=== PATIENT | male | born 1985 | race Caucasian/White ===

== ENCOUNTER 2020-06-16 23:33 | Emergency (ER) | payer SELFPAY ==
[~2020-06-16] VITALS: Ht 182.9 cm; Wt 79.4 kg
[2020-06-17] MEDS ORDERED: PERIDEX15 ML MM (01:02)
[2020-06-17] MEDS ORDERED: AMOX500 PO (01:02)
== END 2020-06-17 01:18 | disposition home or self-care (01) ==
LOC: ER 23:33
DX: K02.9 Dental caries, unspecified (principal); F17.210 Nicotine dependence, cigarettes, uncomplicated
CPT/HCPCS: 99282

== ENCOUNTER 2020-07-26 23:05 | Emergency (ER) | payer OTHER ==
[~2020-07-26] VITALS: Ht 182.9 cm; Wt 79.4 kg
[~2020-07-26 23:05] MED LIST: AMOX500 PO; PERIDEX15 ML MM
[2020-07-27] MEDS ORDERED: CYCL10 PO (01:32)
[2020-07-27] MEDS ORDERED: IBUP600 PO (01:32)
== END 2020-07-27 01:42 | disposition home or self-care (01) ==
LOC: ER 23:05
DX: S29.012A Strain of muscle and tendon of back wall of thorax, initial encounter (principal); F17.210 Nicotine dependence, cigarettes, uncomplicated; Z88.6 Allergy status to analgesic agent; Z88.5 Allergy status to narcotic agent; X50.1XXA Overexertion from prolonged static or awkward postures, initial encounter; Y92.89 Other specified places as the place of occurrence of the external cause; Y99.0 Civilian activity done for income or pay
CPT/HCPCS: 72070; 99283-25; J1885

== ENCOUNTER 2020-07-30 20:10 | Emergency (ER) | payer OTHER ==
[~2020-07-30] VITALS: Ht 182.9 cm; Wt 77.1 kg
[~2020-07-30 20:10] MED LIST changes: +CYCL10 PO; +IBUP600 PO
== END 2020-07-30 21:45 | disposition home or self-care (01) ==
LOC: ER 20:10
DX: S29.9XXA Unspecified injury of thorax, initial encounter (principal); F17.210 Nicotine dependence, cigarettes, uncomplicated; Z88.5 Allergy status to narcotic agent; Z88.6 Allergy status to analgesic agent; X50.0XXA Overexertion from strenuous movement or load, initial encounter
CPT/HCPCS: 99282